=== PATIENT | female | born 1950 | race Hispanic/Latino ===

== ENCOUNTER → 2022-12-26 | Outpatient (CLI) | payer OTHER ==
[~2022-12-26] MED LIST: AMMONIUM LACTATE TP; DILT240T13 PO; LOSA25TA41 PO; METF-446 PO; MOME17N NASAL; OMEP20CA12 PO; PRAV80TA21 PO
[2022-12-26 10:37] LABS: ALBUMIN 3.7 g/dL (3.5-5.0); BILIRUBIN,TOTAL 0.4 mg/dL (0.2-1.0); POTASSIUM 4.5 mmol/L (3.5-5.1); TOTAL PROTEIN, SERUM 7.5 g/dL (6.0-8.3)
== END | disposition home or self-care (01) ==
LOC: LAB 09:36
PROVIDERS: ATTEND Student in an Organized Health Care Education/Training Program
DX: R07.9 Chest pain, unspecified (principal)
CPT/HCPCS: 36415; 80053

== ENCOUNTER → 2022-12-28 | Outpatient (CLI) | payer OTHER ==
[~2022-12-28] MED LIST changes: +IOHEXOL 350 MG/ML 100ML INFUS..BTL IV ONE; +METOPROLOL TARTRATE 1 MG/ML 5ML VIAL IV ONE
== END | disposition home or self-care (01) ==
LOC: RAH 09:22
PROVIDERS: ATTEND Student in an Organized Health Care Education/Training Program
DX: I25.10 Atherosclerotic heart disease of native coronary artery without angina pectoris (principal); M47.815 Spondylosis without myelopathy or radiculopathy, thoracolumbar region; R07.9 Chest pain, unspecified
CPT/HCPCS: 75574; J3490; Q9967

== ENCOUNTER 2025-02-19 06:01 | Day surgery (SDC) | payer MEDICARE ==
[2025-02-17 10:03] LABS: IMMATURE GRANULOCYTE ABSOLUTE 0.01 K/uL (0-1); NUCLEATED RED BLOOD CELLS 0.0 % (0.0-0.19); PLATELET COUNT (AUTO) 253 K/uL (130-400); RED BLOOD CELL COUNT(AUTO) 4.68 MIL/uL (4.00-5.50); RED CELL DISTRIBUTION WIDTH 13.4 % (11.0-15.5); WHITE BLOOD COUNT (AUTO) 6.6 K/uL (4.8-10.8)
[2025-02-17 10:13] LABS: CREATININE 0.8 mg/dL (0.5-1.0); GLOMERULAR FILTR. RATE CALC 78.0 mL/min (>90); GLUCOSE,RANDOM 101.0 mg/dL (70-105); INR 1.0 (0.85-1.15); SODIUM SERUM 141.0 mmol/L (136-145); UREA NITROGEN, BLOOD 17.0 mg/dL (7-18)
[2025-02-17 10:26] VITALS: BP 148/68; PULSE 77; RESP 13; TEMP 97.2
--- NOTE | 2025-02-17 12:22 | EKG ---
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
--- NOTE | 2025-02-17 15:13 | NUR ---
CONFIRMED ORDER WITH DR. RONNI CRAFT. PATIENT HAD A LEFT BREAST MASTECTOMY. DOCTOR GAVE NO NEW CHANGES OKAY TO PROCEED WITH CURRENT ORDER.
--- NOTE | 2025-02-17 19:37 | HMCIMG ---
EXAM: XR Chest, 1 View. CLINICAL HISTORY: 74-year-old female preop. COMPARISON: XR Chest from 01/22/2023 at 5:18 AM. FINDINGS: LUNGS: No mention of lung findings. PLEURAL SPACES: No pleural effusion or pneumothorax. HEART: The heart size is mildly enlarged, indicating mild cardiomegaly. BONES: Sternotomy wires are present. IMPRESSION: 1. No acute findings 2. Mild cardiomegaly, similar to prior XR chest from 01/22/2023 at 5:18 AM. /[place]
[2025-02-19] VITALS (10 sets, daily range): BP systolic 107–130; BP diastolic 48–69; PULSE 62–79; RESP 13–18; TEMP 97.3–97.4
[~2025-02-19] VITALS: Ht 165.1 cm; Wt 68.2 kg
[~2025-02-19 06:01] MED LIST changes: +AEC81 PO; -AMMONIUM LACTATE TP; +ATOR40TA69 PO; +BACL10TA PO; +CALC200T16 PO; -DILT240T13 PO; +FLUT15.845 NS; -IOHEXOL 350 MG/ML 100ML INFUS..BTL IV ONE; +LORA-997 PO; -LOSA25TA41 PO; +METF-444 PO; -METF-446 PO; +METO-391 PO; -METOPROLOL TARTRATE 1 MG/ML 5ML VIAL IV ONE; -MOME17N NASAL; +MULT-1283 PO; +ONE A DAY WOMENS PO; -PRAV80TA21 PO; +SEMA1PEN3 SQ; +UBID100C4 PO; +[UNRECOGNIZED DRUG - OTHER] PO
[2025-02-19] MEDS ORDERED: LIDOCAINE HCL 400MG/20ML VIAL ONE (07:32)
[2025-02-19] MEDS ORDERED: HEParin-NS 1,000 UNIT/500 ML 1,000 ML IV ONE (07:33)
[2025-02-19] MEDS ORDERED: IOHEXOL 350 MG/ML 100ML INFUS..BTL IV ONE ×2 (07:33→08:51)
[2025-02-19] MEDS ORDERED: VERAPAMIL HCL 2.5 MG/ML VIAL ONE (07:33)
[2025-02-19] MEDS ORDERED: NITROGLYCERIN 50MG VIAL ONE (07:33)
[2025-02-19] MEDS ORDERED: MIDAZOLAM HCL 1 MG/ML 2ML VIAL ONE ×3 (07:43→09:51)
[2025-02-19] MEDS ORDERED: IOHEXOL-350 75 ML VIAL IV ONE (08:08)
[2025-02-19] MEDS ORDERED: HEParin-NS 1,000 UNIT/500 ML 500 ML IV ONE (09:01)
[2025-02-19] MEDS ORDERED: ATROPINE 1MG SYG IVP ONE (09:09)
--- NOTE | 2025-02-19 10:57 | PRN ---
PROCEDURE REPORT DATE OF PROCEDURE: Feb 19, 2025 SUPERVISOR FISH BAIT PROCESSING: [ Ramsey castillo MD] PROCEDURE PERFORMED: Conscious sedation Ultrasound guided left radial artery access Selective left coronary artery angiogram Selective right coronary artery angiogram Left heart catheterization Selective left subclavian angiogram Selective MCGEE angiogram Selective SVG to PDA angiogram Selective SVG to OM1 angiogram SVG to LAD angiogram Orbital atherectomy of the RCA IVF/shockwave lithotripsy of the RCA Status post successful orbital atherectomy (1.25 mm), IVL, and PTCA/PCI of the prox to mid RCA x2 (3 x 33 and 3.5 x 20 Skypoint point SATHYA) TR band 13 collin over left radial artery INDICATION: Abnormal CCTA DESCRIPTION OF PROCEDURE: After informed consent was obtained, the patient was prepped and draped in the usual sterile fashion. A 6 Sudanese arterial sheath was inserted in the left radial artery using ultrasound guidance with first pass wall puncture. The arterial sheath was aspirated and flushed. A five Sudanese Anne Fogartyli catheter was advanced over the wire into the left subclavian and performed a left subclavian angiogram. We then used the same catheter to select engage the MCGEE graft followed by an angiographic images. We exchanged this catheter for a A 6 Sudanese JL 3.5 was then advanced to the ascending aorta over an exchange length J-tip guidewire, was aspirated and flushed, and was used for selective coronary angiograms in multiple obliquities. A JR-4 was advanced in a similar fashion to the ascending aorta over the J-tipped guidewire and was used for selective right coronary angiograms in multiple oblique views with findings as outlined below. The JR-4 catheter advanced into the LV and pressures were obtained with a pull- back across the aortic valve. We then used the JR4 catheter select engage the SVG to OM1 graft followed by multiple angiographic images. We used the same catheter for the SVG to LAD and SVG to PDA grafts which were occluded at the ostium. At this time we decided to proceed with RCA revascularization so we exchanged the diagnostic catheter for a six Sudanese JR4 catheter which was advanced over the wire similar fashion used to engage the right coronary artery. We advanced a Prowater into the distal PLB branch under fluoroscopic guidance. We advanced a 3 x 15 mm compliant balloon which was inflated to nominal pressures in the mid RCA. Following this we are met with significant resistance passing any further balloons despite multiple attempts. We advanced a six Sudanese Guideliner for additional support along with a microcatheter but we are unable to traverse the microcatheter beyond the mid RCA segment despite use of a jair wire which was placed in the PLB. Following multiple failed attempts we removed all wires and exchanged the catheter for a six Sudanese Ikari right catheter. Given our significant difficulty we attempted over the wire balloons but we are unable to traverse the mid calcified RCA lesion. At this time we removed the Prowater and advanced a Viper orbital wire into the distal PLB branch. We proceeded with orbital atherectomy using a 1.25 mm crown which was performed in several antegrade and retrograde passes within the prox and mid segments. We were then able to advanced a micro catheter over the wire and we removed the Viper wire and advanced an iron man for additional support. We then further pre-dilated using a 2.5 x 15 mm compliant balloon serially in the mid and proximal segments to nominal pressures. We then proceeded with shockwave lithotripsy using a 3 x 12 mm shockwave balloon which was inflated to four and six COLLIN serially within the mid and proximal segments. We then deployed a 3 x 33 mm guide point drug-eluting stent within the mid RCA to nominal pressures. This was post dilated using a 3 x 27 mm noncompliant balloon to 16 COLLIN. We then deployed a 3 0.5 x 20 mm jennifer point drug-eluting stent within the proximal RCA to nominal pressures. This was post dilated using a 3.5 x 20 mm noncompliant balloon to 16 COLLIN respectively. We provided a total of 400 mcg of intracoronary nitroglycerin and repeat angiogram revealed sabianist of OLAYINKA three flow with no dissections or perforations. Patient tolerated procedure well so at this time all wires and catheters removed from the body and a A TR band was placed over left raidal artery. Patient was transferred to photo lab technician holding in stable condition FLUOROSCOPY TIME: 67.3 min LEFT HEART HEMODYNAMICS: LVEDP 9 mm Hg and no gradient Ao CORONARY ANGIOGRAM: LEFT MAIN: Patent, short and 0% stenosis. Gives rise to LCx and LAD. LEFT ANTERIOR DESCENDING: Large vessel giving rise to two Diagonal branches. There is 90-95% proximal and 80-85% mid LAD stenosis just after the first septal artery with OLAYINKA 2 flow. LEFT CIRCUMFLEX: Large and gives rise to two OM branches. Ostial 70-80% stenosis. Om1 fills via patent graft RIGHT CORONARY ARTERY: Large, dominant and heavily calcified vessel giving rise to PDA and PL branches. 70-80% proximal and 90-95% mid stenosis. PDA and PLB patent. HEMOSTASIS: TR band 12 collin over left radial artery INTERVENTIONS: Status post successful orbital atherectomy (1.25 mm), IVL, and PTCA/PCI of the prox to mid RCA x2 (3 x 33 and 3.5 x 20 Skypoint point SATHYA) COMPLICATIONS: None FINDINGS: Severe multivessel with an atretic MCGEE, and occluded SVG to PDA, SVG to LAD graft severe wrangell LAD and RCA stenosis ESTIMATED BLOOD LOSS: 5 cc RECOMMENDATIONS/INSTRUCTIONS: Aggressive risk factor modification. Patient will require six months of dual antiplatelet therapy in addition to high-intensity statin therapy and beta-zaria We will plan for staged revascularization of patient's LAD in the coming weeks TR band and radial precautions and discharge this afternoon CONTRAST DELIVERED TO PATIENT (mL): 300cc MD LUANA Claudio JAMES R MD Feb 19, 2025 10:57
[2025-02-19] MEDS ORDERED: GLUCAGON 1MG KIT 1 MG ML IM PRN (11:00)
[2025-02-19] MEDS ORDERED: DEXTROSE 50%-WATER 50 ML DISP.SYRIN IV PRN (11:00)
[2025-02-19] MEDS ORDERED: 0.9%NACL 1000ML 1,000 ML IV SCH (11:00)
--- NOTE | 2025-02-19 12:00 | NUR ---
RX AND STENT CARD GIVEN TO PATIENTS FRIEND AT BEDSIDE
--- NOTE | 2025-02-19 14:25 | NUR ---
VASBAND REMOVED WRAPPED WITH STERILE 2X2 GAUZE DRESSED WITH TEGADERM COBAND APPLIED TO LEFT RADIAL SITE. SITE ASYMPTOMATIC.
--- NOTE | 2025-02-19 14:54 | NUR ---
PT AND FRIENDS GIVEN VERBAL AND WRITTEN DISCHARGE INSTRUCTIONS. IV REMOVED SITE ASYMPTOMATIC. PT AND FRIEND INSTRUCTED TO START TAKING PLAVIX TOMORROW DIRECTED. PT TAKEN OUT VIA WHEELCHAIR FRIEND DRIVING
== END 2025-02-19 15:05 | disposition home or self-care (01) ==
LOC: DAH 06:01
PROVIDERS: ATTEND Student in an Organized Health Care Education/Training Program
DX: R94.39 Abnormal result of other cardiovascular function study (principal); I25.118 Atherosclerotic heart disease of native coronary artery with other forms of angina pectoris; I25.84 Coronary atherosclerosis due to calcified coronary lesion; I25.810 Atherosclerosis of coronary artery bypass graft(s) without angina pectoris; E11.9 Type 2 diabetes mellitus without complications; K21.9 Gastro-esophageal reflux disease without esophagitis; I11.9 Hypertensive heart disease without heart failure; E78.5 Hyperlipidemia, unspecified; Z79.84 Long term (current) use of oral hypoglycemic drugs; Z79.01 Long term (current) use of anticoagulants; Z79.82 Long term (current) use of aspirin; Z79.899 Other long term (current) drug therapy
CPT/HCPCS: 80048; 83880; 85025; 85610; 85730; 36415; 71045; 93005; 92972; 93459; 99156; 99157 ×6; 85347 ×4; 82948; C9602; C1769 ×5; C1887 ×5; C1725 ×7; C1724; A4649; C1894; C1761; Q9965 ×3; C1874 ×2; J3010; J3490 ×3; J0461; J1644 ×4; J2250 ×3; Q9967 ×3; A4215; A4335; A4222; A4221; A4663; A4216; A4606; A4223 ×3; A4554; 96360; 96361; J1265